=== PATIENT | female | born 1990 | race Caucasian/White ===

== ENCOUNTER 2019-04-20 20:53 | Emergency (ER) | payer MEDICAID ==
[~2019-04-20] VITALS: Ht 154.9 cm; Wt 55.3 kg
[2019-04-20 21:24] VITALS: Ht 154.9 cm; Wt 55.3 kg
[2019-04-20 22:46] LABS: BASOPHIL % 0.3 % (0-2); PLATELET COUNT 207 x10^3mcL (130-400); RED CELL DISTRIBUTION WIDTH 13.4 % (11.5-14.5)
[2019-04-20 22:50] LABS: CARBON DIOXIDE 24.4 mmol/L (21-32); CHLORIDE SERUM 102 mmol/L (98-107); CREATININE SERUM 0.6 mg/dL (0.6-1.0); GFR1 > 60 mL/min; GLUCOSE SERUM 81 mg/dL (74-106); POTASSIUM SERUM 3.9 mmol/L (3.5-5.1); SODIUM SERUM 137 mmol/L (136-145)
[2019-04-20 22:51] LABS: ALBUMIN 3.1 g/dL (3.4-5.0); BILIRUBIN TOTAL 0.22 mg/dL (0.20-1.00); CALCIUM 8.9 mg/dL (8.5-10.1); TOTAL PROTEIN, SERUM 7.1 g/dL (6.4-8.2)
[2019-04-20 22:52] LABS: ALKALINE PHOSPHATASE 49 U/L (46-116); ALT/SGPT 20 U/L (14-59); AST/SGOT 19 U/L (15-37); LIPASE 309 IU/L (73-393); MAGNESIUM 1.6 mg/dL (1.8-2.4)
[2019-04-20 23:13] LABS: microscopic required? YES; urine erythrocyte NEGATIVE (NEGATIVE)
[2019-04-21 03:15] VITALS: BP 93/56
== END 2019-04-21 03:15 | disposition home or self-care (01) ==
LOC: ED 20:53
PROVIDERS: Emergency Medicine
DX: O21.0 Mild hyperemesis gravidarum (principal); E83.42 Hypomagnesemia; Z3A.13 13 weeks gestation of pregnancy
CPT/HCPCS: 87804; J1200; J2405; J2765; J3475; J7030; J7042; Q0092